=== PATIENT | female | born 1940 | race American Indian/Alaskan Native ===

== ENCOUNTER 2016-07-25 06:51 | Day surgery (SDC) | payer MEDICARE ==
[2016-07-25 09:06] LABS: Basophils % (Auto) 0.5 % (0.0-1.8); Eosinophils % (Auto) 0.5 % (0.0-4.3); Hematocrit 34.1 % (30.3-42.9); Hemoglobin 10.9 gm/dl (10.1-14.3); Mean Corpuscular HGB Conc 32 % (30-34); Mean Corpuscular Hemoglobin 28 pg (28-32); Mean Corpuscular Volume 86 fl (79-97); Platelet Count 303 K/mm3 (140-440); Red Blood Count 3.95 M/mm3 (3.65-5.03); Red Cell Distribution Width 14.5 % (13.2-15.2)
[2016-07-25 09:15] LABS: INR 0.93 (0.87-1.13)
[2016-07-25 09:16] LABS: Partial Thromboplastin Time 33.7 Sec. (24.2-36.6)
--- NOTE | 2016-07-25 09:37 | XRay Report ---
METASTATIC BONE SURVEY HISTORY: Multiple myeloma FINDINGS: Compared to 10/06/15. The bony structures are mildly demineralized which is unchanged. Multiple well-circumscribed lytic lesions in the calvarium measuring up to 1.5 cm are again identified and not significantly changed. The overall number of lesions appear stable. Moderate to severe multilevel degenerative changes noted throughout the spine. Compression deformities are suspected at T11, L2 and possibly L3. These appear chronic. There are a few scattered lytic lesions in the proximal left femur measuring up to 1 cm which also appear stable. IMPRESSION: Stable findings since 10/06/15. There are multiple lytic calvarial lesions and a few small lytic lesions in the proximal left femur which appear unchanged since the previous exam. No additional lytic or blastic bony lesions are appreciated.
[2016-07-25] MEDS ORDERED: SUBLIMAZE IV ONE (10:14)
[2016-07-25] MEDS ORDERED: VERSED IV ONE (10:14)
--- NOTE | 2016-07-25 12:03 | Cat Scan Report ---
CT BIOPSY BONE MARROW HISTORY: Multiple myeloma. FINDINGS: Informed consent was obtained. Sterile technique was utilized. 1% lidocaine for skin anesthesia. Conscious sedation with Versed and fentanyl. The patient was sedated for 20 minutes. Independent cardiorespiratory monitoring by RN. Intra-observer time of [address] guidance, a 19-gauge introducer needle was advanced into the right posterior iliac bone. For bone marrow aspirations were obtained. Pathology was on site of the samples. Please note that the bone core sample was unsuccessful. IMPRESSION: Successful CT-guided bone marrow biopsy.
[2016-07-25 13:38] VITALS: BP 122/59
== END 2016-07-25 13:06 | disposition home or self-care (01) ==
LOC: OPU 06:51 → EDSTATUS 08:30 → OPU 13:06
PROVIDERS: ATTEND Internal Medicine Hematology & Oncology
DX: C90.00 Multiple myeloma not having achieved remission (principal); Z79.01 Long term (current) use of anticoagulants
CPT/HCPCS: 36415; 38221; 77012; 77074; 85007; 85025; 85097; 85610; 85730; 88161; 88305; 88311; 88313; J2250; J3010

== ENCOUNTER 2017-05-14 09:15 | Outpatient (CLI) | payer MEDICARE ==
--- NOTE | 2017-05-16 14:09 | Vascular Lab Report ---
Left Lower Extremity Venous Duplex Study: Reason for Exam: Swelling of the left lower extremity. Comments on the Right: A limited duplex study was done of the proximal veins of the right lower extremity. All veins visualized are freely compressible without evidence of internal echogenicity. Flow is spontaneous and phasic throughout. No evidence of acute or chronic thrombus is seen in any of the vessels visualized. Comments on the Left: All veins visualized are freely compressible without evidence of internal echogenicity. Flow is spontaneous and phasic throughout. No evidence of acute or chronic thrombus is seen in any of the vessels visualized. Impression: No evidence of acute or chronic deep venous thrombosis in the left lower extremity.
== END 2017-05-14 09:16 | disposition home or self-care (01) ==
LOC: VAS 09:15
PROVIDERS: ATTEND Internal Medicine Hematology & Oncology
DX: M79.89 Other specified soft tissue disorders (principal); Z79.899 Other long term (current) drug therapy